=== PATIENT | female | born 1945 | race Caucasian/White ===

== ENCOUNTER → 2019-09-07 10:17 | Outpatient (CLI) | payer MEDICARE, BC ==
--- NOTE | 2019-09-11 13:56 | EC ---
PATIENT:MARIANA RENE DATE OF SERVICE: 09/07/19 SEX: F MEDICAL RECORD: [id number] DATE OF : [birth year] LOCATION:D[facility] AGE OF PATIENT: 74 ADMISSION DATE: 09/07/19 REFERRING PHYSICIAN: INTERPRETING PHYSICIAN: ARPIT SOTO MD ECHOCARDIOGRAM REPORT ECHO CHARGES 4 ECHO COMPLETE Date: 09/07/19 CLINICAL DIAGNOSIS: H/O HTN ECHOCARDIOGRAPHIC MEASUREMENTS (adult normal given) AC root (d.<3.7cm) 3.1 cm LV Septum d (<1.2 cm> 1.2 cm Valve Excursion 2.1 cm LV Septum (systole) 1.8 cm Left Atria (s.<4.0cm> 3.4 cm LVPW d(<1.2cm) 1.1 cm RV (d.<2.3cm) 2.5 cm LVPW (sytole) 1.9 cm LV diastole(<5.6CM) 4.5 cm MV E-F(>70mm/sec) cm LV systole 1.9 cm LVOT Diameter 1.7 cm MV exc.(>10mm) cm Est.ejection fraction (50-75%) % DOPPLER: LVIT cm/sec A 122 cm/sec E 80.0 cm/sec LA cm/sec RVSP 34.3 mmHg LVOT 127 cm/sec AOP1/2T m/s Asc. Ao 160 cm/sec RVOT 77.0 cm/sec RA cm/sec PA 105 cm/sec AV Gradient Peak 10.3 mmHg AV Mean 5.1 mmHg AV Area 1.7 cm MV Gradient Peak 6.5 mmHg MV Mean 2.1 mmHg MV Area cm COMMENTS: OP - HC Marketing Operations Coordinator: 1 GARLAND HERRINGOE Box Lining Machine Operator: 3 Dr. Delgado TAPE# PACS Pericardial Effusion N DATE OF SERVICE: Adequate 2D, color flow, spectral Doppler, and M-mode. No LVH. LV internal dimension is normal. Wall motion is normal. EF is greater than or equal to 55%. Aortic valve is tricuspid. No evidence of stenosis by Doppler interrogation. Left atrium is normal at 3.4 cm. Mitral valve shows no prolapse. Trace MR. Right-sided chambers grossly normal. Trace TR. TRANSINT:[id number] Voice Confirmation ID: [id number] DOCUMENT ID: [id number] ECHOCARDIOGRAM REPORT [id number] MARIANA RENE GREGORY A MD at 1356 CC: [id number] DICTATION DATE: 09/08/19 1213 HOSPICE PATIENT CARE SECRETARY: 09/08/19 1232 DEP CLI 09/07/19 [place] [id number] [place] [address]
== END | disposition home or self-care (01) ==
LOC: D.HCCECHO 10:17
PROVIDERS: ATTEND Internal Medicine Interventional Cardiology
DX: I10 Essential (primary) hypertension (principal)

== ENCOUNTER → 2020-09-09 10:12 | Outpatient (CLI) | payer MEDICARE, BC ==
--- NOTE | ~2020-09-09 | EC ---
PATIENT:MARIANA RENE DATE OF SERVICE: 09/09/20 SEX: F MEDICAL RECORD: [id number] DATE OF : [birth year] LOCATION:[facility] AGE OF PATIENT: 75 ADMISSION DATE: 09/09/20 REFERRING PHYSICIAN: INTERPRETING PHYSICIAN: ARPIT SOTO MD ECHOCARDIOGRAM REPORT ECHO CHARGES 4 ECHO COMPLETE Date: 09/09/20 CLINICAL DIAGNOSIS: HTN/MITRAL AND TRICUSPID REGURG ECHOCARDIOGRAPHIC MEASUREMENTS (adult normal given) AC root (d.<3.7cm) 3.2 cm LV Septum d (<1.2 cm> 1.2 cm Valve Excursion 1.4 cm LV Septum (systole) 1.4 cm Left Atria (s.<4.0cm> 3.1 cm LVPW d(<1.2cm) 1.3 cm RV (d.<2.3cm) 3.4 cm LVPW (sytole) 1.5 cm LV diastole(<5.6CM) 4.4 cm MV E-F(>70mm/sec) cm LV systole 2.8 cm LVOT Diameter 1.7 cm MV exc.(>10mm) 1.7 cm Est.ejection fraction (50-75%) % DOPPLER: LVIT cm/sec A 106.0cm/sec E 106.0 cm/sec LA cm/sec RVSP 35 mmHg LVOT 107 cm/sec AOP1/2T m/s Asc. Ao 141 cm/sec RVOT 72 cm/sec RA cm/sec PA 106 cm/sec AV Gradient Peak 7.92 mmHg AV Mean 3.78 mmHg AV Area 1.7 cm MV Gradient Peak 4.56 mmHg MV Mean 1.87 mmHg MV Area cm COMMENTS: Sprayer Automatic Spray Machine: 2 AUDREY BARNHART Draw Bench Operator: 3 Dr. Delgado TAPE# PACS Pericardial Effusion N DATE OF SERVICE: Adequate 2D, color flow imaging, spectral Doppler, and M-mode. Mild LVH. LV internal dimensions are normal. Wall motion normal. EF greater than or equal to 55%. Aortic valve is tricuspid. No evidence of stenosis by Doppler interrogation. Trivial AI by color flow imaging. Left atrium is normal. Mitral valve shows no prolapse. Trace MR. Right-sided chambers are grossly normal. Trace TR. TRANSINT:[id number] Voice Confirmation ID: [id number] DOCUMENT ID: [id number] ECHOCARDIOGRAM REPORT [id number] MARIANA RENE GREGORY A MD CC: [id number] DICTATION DATE: 09/10/20 1500 HYDROPONICS WORKER: 09/10/20 2314 DEP CLI 09/09/20 [place] [id number] [place] [id number]
== END | disposition home or self-care (01) ==
LOC: D.HCCECHO 10:12
PROVIDERS: ATTEND Internal Medicine Interventional Cardiology
DX: I10 Essential (primary) hypertension (principal)